=== PATIENT | male | born 1955 | race Caucasian/White ===

== ENCOUNTER 2016-11-19 18:38 | Emergency (ER) | payer SELFPAY ==
[~2016-11-19] VITALS: Ht 177.8 cm; Wt 90.0 kg
[~2016-11-19 18:38] MED LIST: MYCARDIS PO
[2016-11-19 18:40] VITALS: BP 124/72; TEMP 98.7; O2SAT 99
[2016-11-19 18:48] VITALS: BP 164/89; PULSE 96; RESP 16; TEMP 98.1; O2SAT 97
[2016-11-19] MEDS ORDERED: SODIUM CHLORIDE 0.9% FLUSH 10 ML FLUSH IVF PRN (19:00)
--- NOTE | 2016-11-19 19:20 | RADRPT ---
EXAM DATE/TIME: 11/19/2016 19:12 [facility] COMPARISON: No previous studies available for comparison. INDICATIONS : Hypertension. MEDICAL HISTORY : Hypertension. SURGICAL HISTORY : None. ENCOUNTER: Initial ACUITY: 1 day PAIN SCORE: 0/10 LOCATION: Bilateral chest FINDINGS: A single view of the chest demonstrates the lungs to be symmetrically aerated without evidence of mas s, infiltrate or effusion. The cardiomediastinal contours are unremarkable. Osseous structures are intact. CONCLUSION: No acute disease. Emerson Ross MD on November 19, 2016 at 19:17 Board Certified Radiologist. This report was verified electronically.
--- NOTE | 2016-11-19 19:31 | PD ---
HPI Chief Complaint: Hypertension Time Seen by Provider: 19:27 Travel History International Travel<30 days: No Contact w/Intl Traveler<30days: No Traveled to known affect area: No History of Present Illness HPI 61-year-old male that presents to the ED for evaluation of hypertension. Patient states that today he is not that he's had some headaches on and off. Per patient this is usual whenever his blood pressure is high. He states compliance with his blood pressure medications. Per patient and his blood pressure was high into his blood pressure medication. Per patient he talked to his neighbor who is a taxi truck driver and he recommended that he get seen at the fire department where they can do an EKG on him. Did perform an EKG at this place and he felt that he had RBBB and the told to come here. Patient denies any chest pain or shortness of breath at any time today. He denies any history of chronic disease. He does have a family history of heart issues as well as TIAs but again he denies any pain in his chest. He denies any history of heart disease on himself. He states that right now he feels fine. Patient denies any history of smoking, high cholesterol, diabetes. No allergies to medication. Per patient he took an ibuprofen for his headache which resolved the headache. He was given aspirin by ambulance. He has no other medical problems at this time. [facility] Past Medical History Cancer: Yes (skin) Past Surgical History Appendectomy: Yes Genitourinary Surgery: Yes (diverticulitis) Social History Alcohol Use: Yes (2 drinks daily) Tobacco Use: No Allergies-Medications (Allergen,Severity, Reaction): Coded Allergies: No Known Allergies (Verified , 11/19/16) Reported Meds & Prescriptions Reported Meds & Active Scripts Active Reported Benazepril-Hydrochlorothiazide 10-12.5 Mg Tab 1 Tab PO DAILY Review of Systems Except as stated in HPI: all other systems reviewed are Neg Physical Exam Narrative GENERAL: SKIN: Warm and dry. HEAD: Atraumatic. Normocephalic. EYES: Pupils equal and round 4 mm reactive to light and accomodation. No scleral icterus. No injection or drainage. ENT: No nasal bleeding or discharge. Mucous membranes pink and moist. Tongue is midline. No uvula deviation. NECK: Trachea midline. No JVD. CARDIOVASCULAR: Regular rate and rhythm. No murmurs, S3, S4. RESPIRATORY: No accessory muscle use. Clear to auscultation. Breath sounds equal bilaterally. GASTROINTESTINAL: Abdomen soft, non-tender, nondistended. Hepatic and splenic margins not palpable. MUSCULOSKELETAL: Extremities without clubbing, cyanosis, or edema. No obvious deformities. Full range of motion of the upper and lower extremities bilaterally. 2+ pulses bilaterally. NEUROLOGICAL: Awake and alert. No obvious cranial nerve deficits. Motor grossly within normal limits. Five out of 5 muscle strength in the arms and legs. Normal speech. PSYCHIATRIC: Appropriate mood and affect; insight and judgment normal. Data Data Last Documented VS Vital Signs Date Time Temp Pulse Resp B/P Pulse Ox O2 Delivery O2 Flow Rate FiO2 11/19/16 19:59 86 20 152/92 96 Room Air 11/19/16 18:48 98.1 Orders Electrocardiogram (11/19/16 18:58) Basic Metabolic Panel (Bmp) (11/19/16 18:58) Ckmb (Isoenzyme) Profile (11/19/16 18:58) Complete Blood Count With Diff (11/19/16 18:58) Magnesium (Mg) (11/19/16 18:58) Prothrombin Time / Inr (Pt) (11/19/16 18:58) Act Partial Throm Time (Ptt) (11/19/16 18:58) Troponin I (11/19/16 18:58) Chest, Single Ap (11/19/16 18:58) Ecg Monitoring (11/19/16 18:58) Iv Access Insert/Monitor (11/19/16 18:58) Oximetry (11/19/16 18:58) Sodium Chloride 0.9% Flush (Ns Flush) (11/19/16 19:00) Ct Brain W/O Iv Contrast(Rout) (11/19/16 ) Labs Laboratory Tests Test 11/19/16 19:25 White Blood Count 4.8 TH/MM3 Red Blood Count 5.09 MIL/MM3 Hemoglobin 16.4 GM/DL Hematocrit 46.1 % Mean Corpuscular Volume 90.6 FL Mean Corpuscular Hemoglobin 32.3 PG Mean Corpuscular Hemoglobin 35.6 % Concent Red Cell Distribution Width 13.5 % Platelet Count 171 TH/MM3 Mean Platelet Volume 8.4 FL Neutrophils (%) (Auto) 77.7 % Lymphocytes (%) (Auto) 10.6 % Monocytes (%) (Auto) 11.2 % Eosinophils (%) (Auto) 0.2 % Basophils (%) (Auto) 0.3 % Neutrophils # (Auto) 3.7 TH/MM3 Lymphocytes # (Auto) 0.5 TH/MM3 Monocytes # (Auto) 0.5 TH/MM3 Eosinophils # (Auto) 0.0 TH/MM3 Basophils # (Auto) 0.0 TH/MM3 CBC Comment DIFF FINAL Differential Comment Prothrombin Time 11.9 SEC Prothromb Time International 1.1 RATIO Ratio Activated Partial 30.8 SEC Thromboplast Time Sodium Level 137 MEQ/L Potassium Level 3.5 MEQ/L Chloride Level 101 MEQ/L Carbon Dioxide Level 23.9 MEQ/L Anion Gap 12 MEQ/L Blood Urea Nitrogen 18 MG/DL Creatinine 1.16 MG/DL Estimat Glomerular Filtration 64 ML/MIN Rate Random Glucose 106 MG/DL Calcium Level 9.0 MG/DL Magnesium Level 2.3 MG/DL Total Creatine Kinase 96 U/L Troponin I LESS THAN 0.02 NG/ML MDM Medical Decision Making Medical Screen Exam Complete: Yes Emergency Medical Condition: Yes Medical Record Reviewed: Yes Interpretation(s) CBC & BMP Diagram 11/19/16 19:25 EKg shows RBBB but no sign of acute ischemia or arrhythmia read by me and atteding Troponin and CKMB negative CXR negative CT head negative Differential Diagnosis Hypertension versus hypertensive crisis versus TIA versus abnormal EKG versus ACS Narrative Course 61-year-old male that presents to the ED for evaluation of abnormal EKG and hypertension. Patient was properly examined and was found to have signs and symptoms consistent appears to be abnormal EKG. Labs and imaging ordered. Labs and imaging were negative for acute disease. Patient was reassured. BP here WNL. Case discussed with my attending who agrees with plan. I recommend close follow up with PCP. Take meds as prescribed. F/u with cardiology OTC. See ED if worst. Diagnosis Primary Impression: Hypertension Qualified Code: I10 - Essential hypertension Patient Instructions: General Instructions Additional Instructions: F/u with PCP. See ED if worsening symptoms. Continue your meds as prescribed by your doctor. Med/Other Pt SpecificInfo: No Change to Meds Disposition: 01 DISCHARGE HOME Condition: Stable Rufus Amaral November 19, 2016 19:31
[2016-11-19 19:45] LABS: AUTOMATED NEUTROPHIL # 3.7 TH/MM3 (1.8-7.7); BASOPHIL % 0.3 % (0.0-2.0); EOSINOPHIL % 0.2 % (0.0-4.0); HEMATOCRIT 46.1 % (39.0-51.0); HEMO FLAGS DIFF FINAL; LYMPH % 10.6 % (9.0-44.0); LYMPHOCYTE # 0.5 TH/MM3 (1.0-4.8); MEAN CELL VOLUME 90.6 FL (80.0-100.0); MEAN CORPUSCULAR HEMOGLOBIN 32.3 PG (27.0-34.0); MEAN CORPUSCULAR HGB CONC 35.6 % (32.0-36.0); MONO % 11.2 % (0.0-8.0); NEUT % 77.7 % (16.0-70.0); PLATELET COUNT 171 TH/MM3 (150-450); RED BLOOD COUNT 5.09 MIL/MM3 (4.50-5.90); RED CELL DISTRIBUTION WIDTH 13.5 % (11.6-17.2); WHITE BLOOD COUNT 4.8 TH/MM3 (4.0-11.0)
[2016-11-19 19:59] VITALS: BP 152/92; PULSE 86; RESP 20; O2SAT 96
[2016-11-19 19:59] LABS: ANION GAP 12 MEQ/L (5-15); APTT (PATIENT) 30.8 SEC (24.3-30.1); BICARBONATE 23.9 MEQ/L (21.0-32.0); BLOOD UREA NITROGEN 18 MG/DL (7-18); CHLORIDE 101 MEQ/L (98-107); GLOMERULAR FILTRATION RATE 64 ML/MIN (>89); INTERNATIONAL NORMALIZED RATIO 1.1 RATIO; MAGNESIUM 2.3 MG/DL (1.5-2.5); POTASSIUM 3.5 MEQ/L (3.5-5.1); PROTHROMBIN TIME - PATIENT 11.9 SEC (9.8-11.6); SODIUM (NA) 137 MEQ/L (136-145)
[2016-11-19] MEDS ORDERED: BENA1TAB42 PO (20:03)
[2016-11-19 20:15] LABS: CREATINE KINASE 96 U/L (39-308)
--- NOTE | 2016-11-19 20:32 | RADRPT ---
EXAM DATE/TIME: 11/19/2016 20:05 [facility] COMPARISON: No previous studies available for comparison. INDICATIONS : Headache off/on for days. RADIATION DOSE: 56.37 CTDIvol (mGy) MEDICAL HISTORY : Hypertension. SURGICAL HISTORY : Appendectomy. ENCOUNTER: Initial ACUITY: 3 days PAIN SCALE: 5/10 LOCATION: cranial TECHNIQUE: Multiple contiguous axial images were obtained of the head. Using automated exposure control and adj ustment of the mA and/or kV according to patient size, radiation dose was kept as low as reasonably a chievable to obtain optimal diagnostic quality images. FINDINGS: CEREBRUM: The ventricles are normal for age. No evidence of midline shift, mass lesion, hemorrhage or acute in farction. No extra-axial fluid collections are seen. POSTERIOR FOSSA: The cerebellum and brainstem are intact. The 4th ventricle is midline. The cerebellopontine angle i s unremarkable. EXTRACRANIAL: The visualized portion of the orbits is intact. SKULL: The calvaria is intact. No evidence of skull fracture. CONCLUSION: No acute intracranial disease. Emerson Ross MD on November 19, 2016 at 20:29 Board Certified Radiologist. This report was verified electronically.
--- NOTE | 2016-11-20 13:39 | EKG ---
Date Performed: 11/19/2016 Time Performed: 19:59:32 PTAGE: 61 years EKG: Sinus rhythm RIGHT BUNDLE BRANCH BLOCK ABNORMAL ECG NO PREVIOUS TRACING DOCTOR: Dwayne Babcock Interpretating Date/Time 11/20/2016 13:38:56
== END 2016-11-19 21:10 | disposition home or self-care (01) ==
LOC: NEPE 18:38
DX: I10 Essential (primary) hypertension (principal); R94.31 Abnormal electrocardiogram [ECG] [EKG]
CPT/HCPCS: 70450; 71010; 80048; 82550; 83735; 84484; 85025; 85610; 85730; 93005